=== PATIENT | male | born 2000 | race Caucasian/White ===

== ENCOUNTER 2024-07-20 10:49 | Inpatient (IN) ==
--- NOTE | 2024-07-20 11:22 | Emergency Department Note ---
Impression & Plan Elevated troponin, Adverse reaction to drug ED Provider Note CHIEF COMPLAINT: Elevated troponin, EKG changes HISTORY OF PRESENT ILLNESS: This 24-year-old male patient with significant past medical history of SGS, schizophrenia, ID, presents to the emergency department via private vehicle accompanied by parents who provide the history. The patient is on clozapine. He has weekly lab and EKG evaluations. This week, the patient's troponin test was elevated at 198 yesterday. The patient was contacted by the psychiatrist and referred to the emergency department due to this. The patient was not brought to the ED last night, but instead presented to [facility] this morning. He had repeat EKG completed which was concerning for ST elevation and patient was referred to the emergency department again for an echocardiogram. Apparently Dr. Drake from [facility] cardiology had been contacted and will help to coordinate having the echocardiogram completed. The patient has not had any chest pain. He did have 1 episode of incontinence yesterday morning which the patient's mother states is unusual for him. He has not otherwise had any pain, nausea, or vomiting. He has not had any shortness of breath or recent illness. No other associated symptoms. History provided by: Patient's mother REVIEW OF SYSTEMS: A 10 system review of systems was performed with positives and pertinent negatives listed in the history of present illness. All other systems were reviewed and are negative. ALLERGIES: NKDA PHYSICAL EXAM: VITALS: Vitals are noted on the nurse's note and reviewed by myself. GENERAL: This is a 24 year old male, in no acute distress, nondiaphoretic, well- developed well-nourished. SKIN: The skin was without rashes, erythema, edema, or bruising. There is no tenting of the skin. Capillary refill less than 2 seconds. HEAD: Normocephalic atraumatic. EYES: Conjunctivae without injection, sclerae without icterus. NECK: Supple without nuchal rigidity. No lymphadenopathy. Cervical spine is nontender. No JVD. HEART: Regular rate and rhythm without murmurs gallops or rubs. LUNGS: Clear to auscultation bilaterally without wheezes, rales or rhonchi. No retractions or accessory muscle use. ABDOMEN: Positive bowel sounds x 4. Soft, nontender, without masses or organomegaly. Larsen sign negative. No guarding or rebound tenderness. MUSCULOSKELETAL: No muscle atrophy, erythema, or edema noted. Full range of motion without joint tenderness in all extremities. No tenderness to palpation. Normal gait. Strength 5/5 throughout. NEURO: Patient was alert and oriented to person place and time. No focal neurological deficits. An order was placed for continuous director of cardiac rehabilitation. The monitor showed a normal sinus rhythm at a ventricular rate of 97 bpm, per my interpretation. EKG was reviewed by myself and found to be normal sinus rhythm with sinus arrhythmia at a rate of 95 beats per minute and per my interpretation reveals no ST elevation or depression. No T wave inversion. ST elevation on outpatient EKG completed earlier at [facility] has resolved. Imaging as interpreted by myself and the radiologist revealed no infiltrate, with radiologist interpretation as above. I agree with the radiologist's findings as based upon my independent interpretation. EMERGENCY DEPARTMENT COURSE: The patient was seen and evaluated as above. Outside medical records from [employer] were obtained with the assistance of case management. It appears that the patient recently had a dose change to per psychiatry. Because he is taking this medication with high risk of cardiomyopathy, he has CRP and troponin testing completed weekly. Patient had outpatient tests completed yesterday and troponin was found to be elevated. I evaluated the patient at the bedside. The patient's mother states that they were referred here for echocardiogram and that the teacher education instructor is aware. She states that because of his elevated troponin and abnormal EKG on outpatient testing, that the patient is to have further cardiac evaluation completed emergently. IV access was obtained, labs were drawn. Chest x-ray and EKG completed and reviewed by myself as above. Labs reviewed. Per my interpretation, mild cytosis of 11.71. No anemia or thrombocytopenia. Renal, hepatic panel and electrolytes without significant abnormality. INR 1.1. PT 11.4. Lipase 99. Troponin testing is elevated at 479. Echocardiogram was ordered and completed at the bedside. I discussed the case with Dr. Drake, [facility] teacher education instructor. He is somewhat familiar with the case, but does not normally follow with this patient. He did review the echocardiogram and notes normal EF function. EKG without ischemic changes or dysrhythmia. He states he is not generally familiar with cardiomyopathy related to Clozaril, and recommends consulting with the patient's psychiatrist who referred the patient for testing regarding next steps. Discussed the case with Dr. Lebron, pt. psychiatrist through [facility]. She notes that cardiomyopathy from Clozaril is an extremely rare complication. She would like the patient to hold the Clozaril for now and investigate for alternative causes for the myocarditis in the setting of rising troponin and normal EKG and echocardiogram. She notes that the patient's mother advised her that he has been sick with "sinus issues" and a "GI bug" over the past few weeks and believes symptoms may be associated with viral etiology. She would like for the patient to be admitted to trend troponin level until it is trending downward while completing additional evaluation for possible viral illness. I discussed these recommendations with the patient and mother at bedside. Patient's mother was agreeable with the admission. [facility] evaluate the patient for admission. Please see hospitalist dictation regarding ongoing management and final disposition for this patient. Case was discussed with the attending physician. I attest that I have personally reviewed the patient medication list. I attest that I have reviewed the patient's blood pressure and it was found to be normal GCS: 15 In the evaluation and treatment of this patient the following differential diagnoses were entertained: Cardiac ischemia, aortic dissection, pulmonary embolism, pneumothorax, pneumonia, pericarditis, myocarditis, esophageal rupture, GERD, cholecystitis, pancreatitis, musculoskeletal, as well as other pathologies. The chart was completed utilizing [employer] voice recognition software. Grammatical errors, random word insertions, pronoun errors, and incomplete sentences are an occasional consequence of this system due to software limitations, ambient noise, and hardware issues. Any formal questions or concerns about the content, text, or information contained within the body of this dictation should be directly addressed to the provider for clarification. Past Med/Surg History Problem List (Updated 07/20/24 @ 16:07 by Peyton Medina PA-C) Adverse reaction to drug (Acute) Elevated troponin (Acute) Medical History No pertinent past medical history Social History Smoking Status: Never smoker Feels Safe at Home: Yes Allergies Allergies Allergy/AdvReac Type Severity Reaction Status Date / Time amoxicillin Allergy Intermediate Rash and Unverified 07/20/24 14:05 stomach upset Home Meds Home Medications Medication Instructions Recorded Confirmed clozapine 100 mg tablet 100 mg PO DIRECTED 07/20/24 07/20/24 escitalopram oxalate 10 mg tablet 5 mg PO DAILY 07/20/24 07/20/24 (Lexapro) hydroxyzine pamoate 25 mg capsule 25 mg PO QID PRN Anxiety 07/20/24 07/20/24 loratadine 10 mg tablet 10 mg PO DAILY PRN allergies 07/20/24 07/20/24 loxapine succinate 50 mg capsule 50 mg PO DAILY 07/20/24 07/20/24 Results & Data (ED) Vital Signs Vital Signs - 24 hr 07/20/24 10:51 07/20/24 11:31 07/20/24 11:31 Temperature 36.8 C Temperature Source Oral Pulse Rate 97 H Pulse Rate [Finger] 97 H Pulse Rate from SpO2 Sensor Respiratory Rate 16 18 Respiratory Effort / Characteristics Non-Labored Spontaneous Respiratory Depth Normal Blood Pressure 125/85 Blood Pressure [Left Arm] 122/89 Blood Pressure Mean 98 Blood Pressure Mean [Left Arm] 100 Pulse Oximetry 100 99 Oxygen Delivery Method Room Air Room Air Nasal Cannula Sepsis Recent Fever Within 48 Hours No Sepsis New/Unexplained Change in Mental Status No Sepsis Action Taken by Nursing No Action Required 07/20/24 12:37 07/20/24 12:48 07/20/24 13:30 Temperature Temperature Source Pulse Rate 89 102 H Pulse Rate [Finger] 114 H Pulse Rate from SpO2 Sensor 101 H Respiratory Rate 25 H 24 Respiratory Effort / Characteristics Respiratory Depth Blood Pressure Blood Pressure [Left Arm] 130/95 Blood Pressure Mean Blood Pressure Mean [Left Arm] 106 Pulse Oximetry 98 97 Oxygen Delivery Method Room Air Room Air Sepsis Recent Fever Within 48 Hours Sepsis New/Unexplained Change in Mental Status Sepsis Action Taken by Nursing 07/20/24 15:16 07/20/24 15:19 Temperature Temperature Source Pulse Rate Pulse Rate [Finger] 116 H Pulse Rate from SpO2 Sensor Respiratory Rate 18 Respiratory Effort / Characteristics Respiratory Depth Blood Pressure Blood Pressure [Left Arm] 141/106 H Blood Pressure Mean Blood Pressure Mean [Left Arm] 117 Pulse Oximetry 97 Oxygen Delivery Method Room Air Room Air Sepsis Recent Fever Within 48 Hours Sepsis New/Unexplained Change in Mental Status Sepsis Action Taken by Nursing Laboratory Data 07/20/24 11:13 07/20/24 11:13 Lab Results 07/20/24 07/20/24 07/20/24 Range/Units 11:13 13:15 14:20 WBC 11.71 H (4.8-10.8) K/ul RBC 5.63 (4.70-6.10) M/uL Hgb 15.5 (14.0-18.0) g/dl Hct 47.1 (42.0-52.0) % MCV 83.7 (80.0-100.0) fL MCH 27.5 (25.0-34.0) pg MCHC 32.9 (32.0-36.0) g/dL RDW Std Deviation 36.7 (36.4-46.3) fL RDW Coeff of Mario 12.1 (11.5-14.5) % Plt Count 249 (130-400) K/uL MPV 9.5 (9.4-12.4) fL Immature Gran % (Auto) 0.5 % Neut % (Auto) 69.8 % Lymph % (Auto) 20.8 % [place] % (Auto) 7.1 % Eos % (Auto) 1.5 % Baso % (Auto) 0.3 % Neut # (Auto) 8.16 H (1.40-6.50) K/uL Lymph # (Auto) 2.44 (1.20-3.40) K/uL [place] # (Auto) 0.83 H (0.11-0.59) K/uL Eos # (Auto) 0.18 (0.00-0.50) K/uL Baso # (Auto) 0.04 (0.00-0.20) K/uL Immature Gran # (Auto) 0.06 (0.01-0.20) K/uL PT 11.4 (9.0-12.0) Seconds INR 1.1 (0.9-1.1) APTT 27 (21-31) Seconds PTT Ratio 1.0 Sodium 140 (136-145) mmol/L Potassium 4.1 (3.5-5.1) mmol/L Chloride 104 (98-107) mmol/L Carbon Dioxide 32 (21-32) mmol/L Anion Gap 4 (3-11) BUN 12 (6-23) mg/dl Creatinine 0.83 (0.6-1.4) mg/dl Est Cr Clr Drug Dosing 103.3 ml/min eGFR 126.91 BUN/Creatinine Ratio 14.5 (10-20) Glucose 77 (70-99(Fasting)) mg/dl Calcium 9.5 (8.6-10.3) mg/dl Total Bilirubin 0.5 (0.2-1.0) mg/dl AST 28 (13-39) U/L ALT 33 (7-52) U/L Alkaline Phosphatase 57 (34-104) U/L Troponin I High Sens 479.0 H* 438.0 H* (0-20) pg/ml Total Protein 6.6 (6.0-8.3) gm/dl Albumin 4.2 (3.4-5.0) gm/dl Globulin 2.4 L (2.5-4.0) gm/dl Albumin/Globulin Ratio 1.8 (0.9-2) Lipase 99 H (11-82) U/L Adenovirus (PCR) Not Detected (NotDetected) B. pertussis DNA (PCR) Not Detected (NotDetected) B.parapertussis DNA PCR Not Detected (NotDetected) C. pneumoniae DNA (PCR) Not Detected (NotDetected) Coronavirus OC43 (PCR) Not Detected (NotDetected) Coronavirus HKU1 (PCR) Not Detected (NotDetected) Coronavirus 229E (PCR) Not Detected (NotDetected) SARS-CoV-2 (PCR) Not Detected (NotDetected) Coronavirus NL63 (PCR) Not Detected (NotDetected) Human Metapneumovir PCR Not Detected (NotDetected) Influenza Type A (PCR) Not Detected (NotDetected) Influenza Type B (PCR) Not Detected (NotDetected) M. pneumoniae (PCR) Not Detected (NotDetected) Parainfluenza 1 (PCR) Not Detected (NotDetected) Parainfluenza 2 (PCR) Not Detected (NotDetected) Parainfluenza 3 (PCR) Not Detected (NotDetected) Parainfluenza 4 (PCR) Not Detected (NotDetected) RSV (PCR) Not Detected (NotDetected) Entero/Rhino (PCR) Not Detected (NotDetected) Imaging Data Radiologist's Impression: Chest X-Ray 07/20/24 10:56 XR chest 1V portable CLINICAL HISTORY: Chest pain, nonspecific COMPARISON STUDY: No previous studies for comparison. FINDINGS: Lung volumes are normal. Lungs are clear. There is no pneumothorax or pleural effusion. Cardiac size is normal. Mediastinal contours are normal. There is no evidence for pulmonary edema. IMPRESSION: No acute cardiopulmonary findings. ACT 112: Negative or not required by law. Electronically signed by: Tristian Zambrano M.D. 07/20/2024 11:38 AM Discharge Plan Visit Data Chief Complaint: Testing Request Stated Complaint: ECHO REQ/TESTING, DOC REF ED Provider: Héctor Watts ED Midlevel Provider: Peyton Medina Discharge Problem: Elevated troponin, Adverse reaction to drug Patient Disposition: Admitted As Inpatient Discharge Instructions Interventions: ED Discharge Assessment Last Done: 07/20/24 15:19 Forms Stand Alone Forms: [facility] [employer] Prescriptions Prescriptions: No Action clozapine 100 mg Tablet 100 mg PO DIRECTED Rx Instructions: take half pill by mouth in the morning - one & a half pill 150 mg loratadine 10 mg Tablet 10 mg PO DAILY PRN (Reason: allergies ) loxapine succinate 50 mg Capsule 50 mg PO DAILY hydroxyzine pamoate 25 mg Capsule 25 mg PO QID PRN (Reason: Anxiety) escitalopram oxalate [Lexapro] 10 mg Tablet 5 mg PO DAILY Referrals Referrals: Eb Tipton PA-C [Primary Care Provider] -
[2024-07-20 11:32] LABS: Basophils # (auto) 0.04 K/uL (0.00-0.20); Basophils % (auto) 0.3 %; Eosinophils # (auto) 0.18 K/uL (0.00-0.50); Eosinophils % (auto) 1.5 %; Hematocrit (blood only) 47.1 % (42.0-52.0); Hemoglobin 15.5 g/dl (14.0-18.0); Immature Granulocytes # (auto) 0.06 K/uL (0.01-0.20); Immature Granulocytes % (auto) 0.5 %; Lymphocytes # (auto) 2.44 K/uL (1.20-3.40); Lymphocytes % (auto) 20.8 %; Mean Corpuscular Hemoglobin 27.5 pg (25.0-34.0); Mean Corpuscular Hgb Conc 32.9 g/dL (32.0-36.0); Mean Corpuscular Volume 83.7 fL (80.0-100.0); Mean Platelet Volume 9.5 fL (9.4-12.4); Monocytes # (auto) 0.83 K/uL (0.11-0.59); Monocytes % (auto) 7.1 %; Neutrophils # (auto) 8.16 K/uL (1.40-6.50); Neutrophils % (auto) 69.8 %; Platelet Count 249 K/uL (130-400); RDW Coefficient of Variation 12.1 % (11.5-14.5); RDW Standard Deviation 36.7 fL (36.4-46.3); Red Blood Count 5.63 M/uL (4.70-6.10); White Blood Count 11.71 K/ul (4.8-10.8)
--- NOTE | 2024-07-20 11:39 | XRay Report ---
XR chest 1V portable CLINICAL HISTORY: Chest pain, nonspecific COMPARISON STUDY: No previous studies for comparison. FINDINGS: Lung volumes are normal. Lungs are clear. There is no pneumothorax or pleural effusion. Car diac size is normal. Mediastinal contours are normal. There is no evidence for pulmonary edema. IMPRESSION: No acute cardiopulmonary findings. ACT 112: Negative or not required by law. Electronically signed by: Tristian Zambrano M.D. 07/20/2024 11:38 AM
[2024-07-20 11:44] LABS: Albumin Globulin Ratio 1.8 (0.9-2); Albumin Level 4.2 gm/dl (3.4-5.0); BUN Creatinine Ratio 14.5 (10-20); Bilirubin,Total 0.5 mg/dl (0.2-1.0); Calcium 9.5 mg/dl (8.6-10.3); Creatinine Clr Calc Pharmacy 103.3 ml/min; Globulin 2.4 gm/dl (2.5-4.0); Potassium 4.1 mmol/L (3.5-5.1); Total Protein 6.6 gm/dl (6.0-8.3)
[2024-07-20 11:55] LABS: INR 1.1 (0.9-1.1); Partial Thromboplastin Time 27 Seconds (21-31); Prothrombin Time 11.4 Seconds (9.0-12.0)
--- NOTE | 2024-07-20 14:27 | History & Physical Report ---
Date of Service July 20, 2024 Assessment & Plan (1) Elevated troponin: (2) Adverse reaction to drug: Plan Assessment and plan: ST elevation Elevated troponin Suspected myocarditis which Possibly a side effect to increasing clozapine, echo unremarkable Repeat EKG unremarkable, troponin trending down, no chest pain/shortness of breath Cardiology consulted, will make n.p.o. for possible stress test Hold clozapine, clozapine level pending, repeat EKG in a.m. started Hx schizophrenia/anxiety: Continue Lexapro/hydroxyzine/loxapine A total of 60 minutes was spent on chart review/reviewing diagnostic data/facilitating plan of care/discussion with consultants Full code DVT prophylaxis: Lovenox History of Present Illness Chief Complaint: Abnormal outpatient blood work Primary Care Provider: Eb Tipton PA-C The patient is a 24-year-old male with a past medical history of schizophrenia, anxiety, ID who presents to the ED on 07/20/2024 after he was sent in by his outpatient psychiatrist for concern of elevated troponin level. Over the past month, the patient has been having hallucinations and his psychiatrist has been adjusting his medications. His clozapine has been adjusted and in turn the patient's psychiatrist was checking a CRP and troponin level because of the rare side effect of myocarditis that is associated with this medication. On 07/19/2024, the patient's troponin level was 198. The psychiatrist directed the patient to report to the ED. The patient reported to the [facility] clinic earlier this morning and had a repeat EKG done which showed ST elevation, unclear which leads and the patient was sent to the ED. On arrival to the ED, EKG showed no acute changes and was within normal limits Initial troponin 479, repeat troponin 438 Clozapine levels pending, Bio[employer] negative for respiratory illness, aside from WBC 11.7, labs fairly unremarkable Chest x-ray negative Echocardiogram unremarkable The patient will be admitted for further monitoring of elevated troponin and clozapine will be held Allergies Allergy/AdvReac Type Severity Reaction Status Date / Time amoxicillin Allergy Intermediate Rash and Unverified 07/20/24 14:05 stomach upset Home Medications Medication Instructions Recorded Confirmed Type clozapine 100 mg tablet 100 mg PO DIRECTED 07/20/24 07/20/24 History escitalopram oxalate 10 mg tablet 5 mg PO DAILY 07/20/24 07/20/24 History (Lexapro) hydroxyzine pamoate 25 mg capsule 25 mg PO QID PRN Anxiety 07/20/24 07/20/24 History loratadine 10 mg tablet 10 mg PO DAILY PRN allergies 07/20/24 07/20/24 History loxapine succinate 50 mg capsule 50 mg PO DAILY 07/20/24 07/20/24 History Past Med/Surg History Problem List (Updated 07/20/24 @ 16:07 by Peyton Medina PA-C) Adverse reaction to drug (Acute) Elevated troponin (Acute) Medical History No pertinent past medical history Social History Smoking Status: Never smoker Feels Safe at Home: Yes Review of Systems Review of Systems: All systems reviewed & are unremarkable except as noted in HPI & below Physical Exam Constitutional: WD/WN, vitals as above Eyes: PERRL, conjunctivae normal, anicteric sclerae Neck: trachea midline, no thyromegaly Respiratory: normal respiratory effort, lungs clear to auscultation Cardiovascular: RRR, no murmur, no edema Gastrointestinal (Abdomen): normal bowel sounds, soft, nontender, no hepatosplenomegaly Musculoskeletal: no cyanosis or clubbing, extremities motor strength 5/5 Skin: no rashes, warm and dry Neurologic: PERRL, EOMI, accommodation nl, no face palsy, no dysarthria (AAOx3, mentation at baseline, follows basic commands, Hx ID) Psychiatric: A+Ox3, euthymic affect Genitourinary: no testicular masses, no penis abnormality Lymphatic: no cervical or axillary lymphadenopathy Results & Data Results & Data Vital Signs (Past 12 Hours) Vital Signs Temp Pulse Pulse Resp BP BP Pulse Ox 07/20/24 13:30 114 H 24 130/95 97 07/20/24 12:48 102 H 25 H 98 07/20/24 12:37 89 07/20/24 11:31 07/20/24 11:31 97 H 18 122/89 99 07/20/24 10:51 36.8 C 97 H 16 125/85 100 O2 Del Method 07/20/24 13:30 Room Air 07/20/24 12:48 Room Air 07/20/24 12:37 07/20/24 11:31 Nasal Cannula 07/20/24 11:31 Room Air 07/20/24 10:51 Room Air Diagnostic Findings Laboratory Results WBC 11.71 K/ul (4.8-10.8) H 07/20/24 11:13 RBC 5.63 M/uL (4.70-6.10) 07/20/24 11:13 Hgb 15.5 g/dl (14.0-18.0) 07/20/24 11:13 Hct 47.1 % (42.0-52.0) 07/20/24 11:13 MCV 83.7 fL (80.0-100.0) 07/20/24 11:13 MCH 27.5 pg (25.0-34.0) 07/20/24 11:13 MCHC 32.9 g/dL (32.0-36.0) 07/20/24 11:13 RDW Std Deviation 36.7 fL (36.4-46.3) 07/20/24 11:13 RDW Coeff of Mario 12.1 % (11.5-14.5) 07/20/24 11:13 Plt Count 249 K/uL (130-400) 07/20/24 11:13 MPV 9.5 fL (9.4-12.4) 07/20/24 11:13 Immature Gran % (Auto) 0.5 % 07/20/24 11:13 Neut % (Auto) 69.8 % 07/20/24 11:13 Lymph % (Auto) 20.8 % 07/20/24 11:13 [place] % (Auto) 7.1 % 07/20/24 11:13 Eos % (Auto) 1.5 % 07/20/24 11:13 Baso % (Auto) 0.3 % 07/20/24 11:13 Neut # (Auto) 8.16 K/uL (1.40-6.50) H 07/20/24 11:13 Lymph # (Auto) 2.44 K/uL (1.20-3.40) 07/20/24 11:13 [place] # (Auto) 0.83 K/uL (0.11-0.59) H 07/20/24 11:13 Eos # (Auto) 0.18 K/uL (0.00-0.50) 07/20/24 11:13 Baso # (Auto) 0.04 K/uL (0.00-0.20) 07/20/24 11:13 Immature Gran # (Auto) 0.06 K/uL (0.01-0.20) 07/20/24 11:13 PT 11.4 Seconds (9.0-12.0) 07/20/24 11:13 INR 1.1 (0.9-1.1) 07/20/24 11:13 APTT 27 Seconds (21-31) 07/20/24 11:13 PTT Ratio 1.0 07/20/24 11:13 Sodium 140 mmol/L (136-145) 07/20/24 11:13 Potassium 4.1 mmol/L (3.5-5.1) 07/20/24 11:13 Chloride 104 mmol/L (98-107) 07/20/24 11:13 Carbon Dioxide 32 mmol/L (21-32) 07/20/24 11:13 Anion Gap 4 (3-11) 07/20/24 11:13 BUN 12 mg/dl (6-23) 07/20/24 11:13 Creatinine 0.83 mg/dl (0.6-1.4) 07/20/24 11:13 Est Cr Clr Drug Dosing 103.3 ml/min 07/20/24 11:13 eGFR 126.91 07/20/24 11:13 BUN/Creatinine Ratio 14.5 (10-20) 07/20/24 11:13 Glucose 77 mg/dl (70-99(Fasting)) 07/20/24 11:13 Calcium 9.5 mg/dl (8.6-10.3) 07/20/24 11:13 Total Bilirubin 0.5 mg/dl (0.2-1.0) 07/20/24 11:13 AST 28 U/L (13-39) 07/20/24 11:13 ALT 33 U/L (7-52) 07/20/24 11:13 Alkaline Phosphatase 57 U/L (34-104) 07/20/24 11:13 Troponin I High Sens 438.0 pg/ml (0-20) H* 07/20/24 13:15 Total Protein 6.6 gm/dl (6.0-8.3) 07/20/24 11:13 Albumin 4.2 gm/dl (3.4-5.0) 07/20/24 11:13 Globulin 2.4 gm/dl (2.5-4.0) L 07/20/24 11:13 Albumin/Globulin Ratio 1.8 (0.9-2) 07/20/24 11:13 Lipase 99 U/L (11-82) H 07/20/24 11:13 Adenovirus (PCR) Not Detected (NotDetected) 07/20/24 14:20 B. pertussis DNA (PCR) Not Detected (NotDetected) 07/20/24 14:20 B.parapertussis DNA PCR Not Detected (NotDetected) 07/20/24 14:20 C. pneumoniae DNA (PCR) Not Detected (NotDetected) 07/20/24 14:20 Coronavirus OC43 (PCR) Not Detected (NotDetected) 07/20/24 14:20 Coronavirus HKU1 (PCR) Not Detected (NotDetected) 07/20/24 14:20 Coronavirus 229E (PCR) Not Detected (NotDetected) 07/20/24 14:20 SARS-CoV-2 (PCR) Not Detected (NotDetected) 07/20/24 14:20 Coronavirus NL63 (PCR) Not Detected (NotDetected) 07/20/24 14:20 Human Metapneumovir PCR Not Detected (NotDetected) 07/20/24 14:20 Influenza Type A (PCR) Not Detected (NotDetected) 07/20/24 14:20 Influenza Type B (PCR) Not Detected (NotDetected) 07/20/24 14:20 M. pneumoniae (PCR) Not Detected (NotDetected) 07/20/24 14:20 Parainfluenza 1 (PCR) Not Detected (NotDetected) 07/20/24 14:20 Parainfluenza 2 (PCR) Not Detected (NotDetected) 07/20/24 14:20 Parainfluenza 3 (PCR) Not Detected (NotDetected) 07/20/24 14:20 Parainfluenza 4 (PCR) Not Detected (NotDetected) 07/20/24 14:20 RSV (PCR) Not Detected (NotDetected) 07/20/24 14:20 Entero/Rhino (PCR) Not Detected (NotDetected) 07/20/24 14:20 Impressions Chest X-Ray 07/20/24 10:56 XR chest 1V portable CLINICAL HISTORY: Chest pain, nonspecific COMPARISON STUDY: No previous studies for comparison. FINDINGS: Lung volumes are normal. Lungs are clear. There is no pneumothorax or pleural effusion. Cardiac size is normal. Mediastinal contours are normal. There is no evidence for pulmonary edema. IMPRESSION: No acute cardiopulmonary findings. ACT 112: Negative or not required by law. Electronically signed by: Tristian Zambrano M.D. 07/20/2024 11:38 AM Code Status & VTE Plan VTE Prophylaxis Plan VTE Prophylaxis will be ordered: No Supervising Physician Co-Signing Physician Notes 24-year-old male with PMH of treatment resistant schizophrenia, global developmental delay, ADHD predominantly inattentive type, borderline intellectual functioning, chromosomal abnormality presented to the ED at referral from outpatient providers office due to elevated troponin noted in this weekly lab and EKG evaluation. Troponin was elevated at 198 yesterday. Patient was requested by psychiatrist to go to the emergency department due to this. They presented to the [facility] in the morning where EKG was rep eated and was concerning for ST elevation and patient was sent to the ED for echocardiogram. At bedside, patient does not appear to be in distress, denies pain, ROS not able in detail due to cognition status. Patient's parents were present at bedside, medications reviewed with them. Per patient's mom, Clozapine has been stopped by psychiatrist until reevaluated by psychiatry as an outpatient, plan to continue with other psychiatric medication, does not take loratadine currently. But patient's mom stopped all her his psychiatric medications yesterday but would like other medications be resumed today except clozapine. Labs and imagings reviewed: WBC elevated at 11.7 1K, get procalcitonin, renal function/liver function WNL, troponin elevated at 479/down trended to 438, lipase minimally elevated in the setting of no abdominal pain on exam. Respiratory pathogen panel negative. CXR with no acute finding. EKG without ischemic changes. Echo with EF of 55 to 60%, no wall motion abnormality. Elevated trop: Rule out ACS, trend troponin. Cardiology consult. Continue telemetry monitoring. On exam: GENERAL: Alert and awake. NAD, on RA. HEENT: No pallor, no icterus. Pupils equal, round and reactive to light. NECK: No JVD, no neck masses. HEART: S1 and S2 heard. Regular rate and rhythm. HR in 120s. No murmur, no gallop. RESPIRATORY SYSTEM: Normal AP diameter. No accessory muscle use. No wheezing, no crackles. ABDOMEN: Soft, bowel sounds present, nontender, no distention. CENTRAL NERVOUS SYSTEM: No facial droop. Speech is clear. Obeys simple commands. Moves extremities. EXTREMITIES: No edema, no erythema seen. I have seen and examined the patient and have discussed the case with the provider above. I agree with the assessment and plan as stated. Time spent: 30 min.
[2024-07-20 15:37] LABS: Adenovirus PCR Not Detected (NotDetected); Bordetella parapertussis PCR Not Detected (NotDetected); Bordetella pertussis PCR Not Detected (NotDetected); Chlamydia pneumoniae PCR Not Detected (NotDetected); Coronavirus 229E PCR Not Detected (NotDetected); Coronavirus CoV-2 (COVID19)PCR Not Detected (NotDetected); Coronavirus HKU1 PCR Not Detected (NotDetected); Coronavirus NL63 PCR Not Detected (NotDetected); Coronavirus OC43PCR Not Detected (NotDetected); Human Metapneumovirus PCR Not Detected (NotDetected); Influenza A PCR Not Detected (NotDetected); Influenza B PCR Not Detected (NotDetected); Mycoplasma pneumoniae PCR Not Detected (NotDetected); Parainfluenza Virus 1 PCR Not Detected (NotDetected); Parainfluenza Virus 2 PCR Not Detected (NotDetected); Parainfluenza Virus 3 PCR Not Detected (NotDetected); Parainfluenza Virus 4 PCR Not Detected (NotDetected); Respiratory Syncytial VirusPCR Not Detected (NotDetected); Rhinovirus/Enterovirus PCR Not Detected (NotDetected)
--- NOTE | 2024-07-20 17:22 | Cardiology Progress Note ---
Date of Service July 20, 2024 Assessment & Plan (1) Elevated troponin: (2) Adverse reaction to drug: Plan 24-year-old male on clozapine for treatment resistant schizophrenia. Being followed serially with echo EKG and troponins. Recent symptoms of upper respiratory infection possible viral syndrome with most recent laboratory testing demonstrating elevated troponin. EKG with repolarization changes more pronounced in lateral leads on EKG as an outpatient baseline repolarization changes on ER presentation troponins elevated but trending downward. Differential diagnosis includes reaction to clozapine, viral induced pericarditis Acute coronary syndrome unlikely Patient currently without complaint Plan observe on telemetry repeat EKG in a.m. trend troponin Consider adding low-dose beta-lexy but review of prior EKGs demonstrates past bradycardia arrhythmias Will follow Admission and Anticipated Discharge Date Admission Date: July 20, 2024 Subjective Patient has 24-year-old male with history as reported treatment resistant schizophrenia, global developmental delay, ADHD predominantly inattentive type, borderline intellectual functioning, chromosomal abnormality presented to the ED at referral from outpatient providers office due to elevated troponin noted in this weekly lab and EKG evaluation. Troponin was elevated at 198 yesterday. Patient was requested by psychiatrist to go to the emergency department due to this. They presented to the [facility] in the morning where EKG was repeated and was concerning for ST elevation and patient was sent to the ED for echocardiogram. Clinical history notable for treatment with clozapine with recent upward titration of dose. Has been followed serially with troponin. Recent history of probable viral syndrome with nausea and upper respiratory complaints. Troponin done and routine evaluation elevated yesterday. Referred to the ER after EKG with ST elevation/repolarization as outpatient. Troponins on presentation elevated but now trending downward. Echocardiogram done in evaluation demonstrated preserved wall motion and LV function. No signs of myocardial injury or wall motion abnormality. Current exam in hospital room without complaint though patient limited historian minimally verbal. Does follow simple commands. No chest pain or shortness of breath per report Review of Systems Review of Systems: All systems reviewed & are unremarkable except as noted in HPI & below Physical Exam Constitutional: no acute distress Neck: trachea midline, no thyromegaly Respiratory: normal respiratory effort, lungs clear to auscultation Cardiovascular: RRR, no murmur, no edema Gastrointestinal (Abdomen): normal bowel sounds, soft, nontender, no hepatosplenomegaly Musculoskeletal: no cyanosis or clubbing, extremities motor strength 5/5 Results & Data Vital Signs (Past 12 Hours) Vital Signs Temp Pulse Pulse Resp BP BP Pulse Ox 07/20/24 16:13 110 H 18 131/91 97 07/20/24 15:19 07/20/24 15:16 116 H 18 141/106 H 97 07/20/24 13:30 114 H 24 130/95 97 07/20/24 12:48 102 H 25 H 98 07/20/24 12:37 89 07/20/24 11:31 07/20/24 11:31 97 H 18 122/89 99 07/20/24 10:51 36.8 C 97 H 16 125/85 100 O2 Del Method 07/20/24 16:13 Room Air 07/20/24 15:19 Room Air 07/20/24 15:16 Room Air 07/20/24 13:30 Room Air 07/20/24 12:48 Room Air 07/20/24 12:37 07/20/24 11:31 Nasal Cannula 07/20/24 11:31 Room Air 07/20/24 10:51 Room Air Laboratory Results Laboratory Results - last 24 hr 07/20/24 07/20/24 07/20/24 11:13 13:15 14:20 WBC 11.71 H RBC 5.63 Hgb 15.5 Hct 47.1 MCV 83.7 MCH 27.5 MCHC 32.9 RDW Std Deviation 36.7 RDW Coeff of Mario 12.1 Plt Count 249 MPV 9.5 Immature Gran % (Auto) 0.5 Neut % (Auto) 69.8 Lymph % (Auto) 20.8 [place] % (Auto) 7.1 Eos % (Auto) 1.5 Baso % (Auto) 0.3 Neut # (Auto) 8.16 H Lymph # (Auto) 2.44 [place] # (Auto) 0.83 H Eos # (Auto) 0.18 Baso # (Auto) 0.04 Immature Gran # (Auto) 0.06 PT 11.4 INR 1.1 APTT 27 PTT Ratio 1.0 Sodium 140 Potassium 4.1 Chloride 104 Carbon Dioxide 32 Anion Gap 4 BUN 12 Creatinine 0.83 Est Cr Clr Drug Dosing 103.3 eGFR 126.91 BUN/Creatinine Ratio 14.5 Glucose 77 Calcium 9.5 Total Bilirubin 0.5 AST 28 ALT 33 Alkaline Phosphatase 57 Troponin I High Sens 479.0 H* 438.0 H* Total Protein 6.6 Albumin 4.2 Globulin 2.4 L Albumin/Globulin Ratio 1.8 Lipase 99 H Procalcitonin Clozapine Norclozapine Adenovirus (PCR) Not Detected B. pertussis DNA (PCR) Not Detected B.parapertussis DNA PCR Not Detected C. pneumoniae DNA (PCR) Not Detected Coronavirus OC43 (PCR) Not Detected Coronavirus HKU1 (PCR) Not Detected Coronavirus 229E (PCR) Not Detected SARS-CoV-2 (PCR) Not Detected Coronavirus NL63 (PCR) Not Detected Human Metapneumovir PCR Not Detected Influenza Type A (PCR) Not Detected Influenza Type B (PCR) Not Detected M. pneumoniae (PCR) Not Detected Parainfluenza 1 (PCR) Not Detected Parainfluenza 2 (PCR) Not Detected Parainfluenza 3 (PCR) Not Detected Parainfluenza 4 (PCR) Not Detected RSV (PCR) Not Detected Entero/Rhino (PCR) Not Detected 07/20/24 07/20/24 15:04 17:04 WBC RBC Hgb Hct MCV MCH MCHC RDW Std Deviation RDW Coeff of Mario Plt Count MPV Immature Gran % (Auto) Neut % (Auto) Lymph % (Auto) [place] % (Auto) Eos % (Auto) Baso % (Auto) Neut # (Auto) Lymph # (Auto) [place] # (Auto) Eos # (Auto) Baso # (Auto) Immature Gran # (Auto) PT INR APTT PTT Ratio Sodium Potassium Chloride Carbon Dioxide Anion Gap BUN Creatinine Est Cr Clr Drug Dosing eGFR BUN/Creatinine Ratio Glucose Calcium Total Bilirubin AST ALT Alkaline Phosphatase Troponin I High Sens Pending Total Protein Albumin Globulin Albumin/Globulin Ratio Lipase Procalcitonin Pending Clozapine Pending Norclozapine Pending Adenovirus (PCR) B. pertussis DNA (PCR) B.parapertussis DNA PCR C. pneumoniae DNA (PCR) Coronavirus OC43 (PCR) Coronavirus HKU1 (PCR) Coronavirus 229E (PCR) SARS-CoV-2 (PCR) Coronavirus NL63 (PCR) Human Metapneumovir PCR Influenza Type A (PCR) Influenza Type B (PCR) M. pneumoniae (PCR) Parainfluenza 1 (PCR) Parainfluenza 2 (PCR) Parainfluenza 3 (PCR) Parainfluenza 4 (PCR) RSV (PCR) Entero/Rhino (PCR)
[2024-07-20] MEDS: ESCITALOPRAM OXALATE 10 MG TAB PO SCH (17:30)
[2024-07-20] MEDS: hydrOXYzine HCl 25 MG TAB PO SCH (21:49)
[2024-07-20 23:02] LABS: Troponin I High Sensitivity 458.7 pg/ml (0-20)
[2024-07-20 23:31] LABS: Magnesium 1.8 mg/dl (1.7-2.4)
[2024-07-21] MEDS ORDERED: ACETAMINOPHEN 325 MG TAB PO PRN (02:28)
[2024-07-21] MEDS: KETOROLAC TROMETHAMINE 15 MG/ML VIAL IV ONE (02:32)
[2024-07-21] MEDS: KETOROLAC TROMETHAMINE 15 MG/ML VIAL ONE (02:34)
[2024-07-21 06:46] LABS: Hematocrit (blood only) 48.5 % (42.0-52.0); Hemoglobin 16.4 g/dl (14.0-18.0); Mean Corpuscular Hemoglobin 28.3 pg (25.0-34.0); Mean Corpuscular Hgb Conc 33.8 g/dL (32.0-36.0); Mean Corpuscular Volume 83.6 fL (80.0-100.0); Mean Platelet Volume 9.5 fL (9.4-12.4); Platelet Count 295 K/uL (130-400); RDW Coefficient of Variation 12.2 % (11.5-14.5); RDW Standard Deviation 36.9 fL (36.4-46.3); White Blood Count 13.38 K/ul (4.8-10.8)
[2024-07-21 07:08] LABS: Albumin Globulin Ratio 1.7 (0.9-2); Albumin Level 4.5 gm/dl (3.4-5.0); BUN Creatinine Ratio 19.3 (10-20); Bilirubin,Total 0.6 mg/dl (0.2-1.0); Calcium 9.7 mg/dl (8.6-10.3); Creatinine Clr Calc Pharmacy 97.4 ml/min; Globulin 2.6 gm/dl (2.5-4.0); Potassium 4.3 mmol/L (3.5-5.1); Total Protein 7.1 gm/dl (6.0-8.3)
[2024-07-21 07:52] VITALS: RESP 18
[2024-07-21] MEDS: LOXAPINE SUCCINATE PO SCH (08:13)
[2024-07-21] MEDS: hydrOXYzine HCl 25 MG TAB PO SCH (08:13)
--- NOTE | 2024-07-21 10:13 | Electrocardiogram Report ---
Test Reason : Blood Pressure : */* mmHG Vent. Rate : 100 BPM Atrial Rate : 100 BPM P-R Int : 110 ms QRS Dur : 58 ms QT Int : 328 ms P-R-T Axes : 72 50 25 degrees QTcB Int : 423 ms Poor data quality, interpretation may be adversely affected Sinus rhythm Normal ECG When compared with ECG of 20-Jul-2024 11:03, No significant change was found Confirmed by Aleksandr Salguero ([id number]) on 07/21/2024 10:13:14 AM Referred By: REFERRED SELF Confirmed By: Aleksandr Salguero
--- NOTE | 2024-07-21 10:15 | Electrocardiogram Report ---
Test Reason : Blood Pressure : */* mmHG Vent. Rate : 106 BPM Atrial Rate : 106 BPM P-R Int : 112 ms QRS Dur : 68 ms QT Int : 330 ms P-R-T Axes : 52 46 19 degrees QTcB Int : 438 ms Poor data quality, interpretation may be adversely affected Sinus tachycardia Otherwise normal ECG When compared with ECG of 21-Jul-2024 02:10, No significant change was found Confirmed by Aleksandr Salguero ([id number]) on 07/21/2024 10:15:19 AM Referred By: REFERRED SELF Confirmed By: Aleksandr Salguero
[2024-07-21 11:19] VITALS: BP 106/74; PULSE 94; TEMP 98.1; O2SAT 95
--- NOTE | 2024-07-21 11:37 | Cardiology Progress Note ---
Date of Service July 21, 2024 Assessment & Plan (1) Elevated troponin: (2) Adverse reaction to drug: Plan 24-year-old male on clozapine for treatment resistant schizophrenia. Being followed serially with echo EKG and troponins. Recent symptoms of upper respiratory infection possible viral syndrome with most recent laboratory testing demonstrating elevated troponin. EKG with repolarization changes more pronounced in lateral leads on EKG as an outpatient baseline repolarization changes on ER presentation troponins elevated but trending downward. Differential diagnosis includes reaction to clozapine, viral induced pericarditis Acute coronary syndrome unlikely Patient currently without complaint Plan observe on telemetry repeat EKG in a.m. trend troponin Consider adding low-dose beta-lexy but review of prior EKGs demonstrates past bradycardia arrhythmias Will follow 07/21/2024 24-year-old male admitted with abnormal laboratory testing with elevated troponin in the setting of Clozaril treatment for longstanding treatment resistant schizophrenia. Troponins trending downward. No signs of LV dysfunction on echocardiogram EKG stable. No signs of congestive heart failure or cardiac decompensation on exam Recommendations: Given mildly elevated heart rate will begin metoprolol succinate 12.5 mg once per day for additional cardiac protection Continue serial troponins as outpatient planned upcoming retest on Wednesday Repeat echocardiogram 10 to 14 days as an outpatient. Will arrange Family instructed to follow heart rates at home Admission and Anticipated Discharge Date Admission Date: July 20, 2024 Subjective Patient seen and examined, chart, medications, telemetry reviewed Patient appears brighter today answering questions. No acute complaints No arrhythmias on telemetry No chest pain or shortness of breath Review of Systems Review of Systems: Unobtainable due to mental health condition Physical Exam Constitutional: no acute distress Eyes: PERRL, conjunctivae normal, anicteric sclerae Neck: trachea midline, no thyromegaly Respiratory: normal respiratory effort, lungs clear to auscultation Cardiovascular: RRR, no murmur, no edema Gastrointestinal (Abdomen): normal bowel sounds, soft, nontender, no hepatosplenomegaly Musculoskeletal: no cyanosis or clubbing, extremities motor strength 5/5 Results & Data Vital Signs (Past 12 Hours) Vital Signs Temp Pulse Pulse Resp BP Pulse Ox O2 Del Method 07/21/24 11:18 36.7 C 94 H 18 106/74 95 Room Air 07/21/24 09:05 120 H 07/21/24 07:51 36.4 C L 88 18 111/77 97 Room Air 07/21/24 02:07 36.6 C 98 H 20 127/86 Room Air ECG Additional Comments: EKG sinus tachycardia with mild repolarization changes, rate 106 bpm not significantly changed from prior studies
[2024-07-21] MEDS: METOPROLOL SUCC 25MG EXT REL TAB PO SCH (11:52)
--- NOTE | 2024-07-21 12:03 | Discharge Summary ---
Discharge Summary Date of Service July 21, 2024 Principal Dx & Hospital Course #1 = Principal Diagnosis (1) Elevated troponin: (2) Adverse reaction to drug: (3) Schizophrenia: Plan This is a 24-year-old male with PMH of treatment resistant schizophrenia, global developmental delay, ADHD predominantly inattentive type, borderline intellectual functioning, chromosomal abnormality presented who was admitted for elevated troponin. Also had EKG concerned for ST elevation in the clinic setting. Throughout admission patient has remained comfortable, does not appear to be in distress. Differential for elevated troponin includes reaction to clozapine vs viral induced pericarditis. Cardiology felt acute coronary syndrome unlikely. Per cardiology, EKG with repolarization changes more pronounced in lateral leads on EKG as an outpatient baseline repolarization changes on ER presentation troponins elevated but trending downward. Echocardiogram reassuring with preserved EF, no wall motion abnormality or valvular disease. Metoprolol succinate added at a low dose for additional cardiac protection given mildly elevated heart rate during admission. Plan for repeat troponin as an outpatient this coming Wednesday as well as repeat echocardiogram in 10-14 days as an outpatient, cardiology to arrange. Follow-up PCP and psychiatry appointment this coming Wednesday. Clozapine discontinued. Family instructed to monitor heart rates at home. Patient hemodynamically stable at time of discharge home. Family instructed to follow heart rates at home Notes For Next Care Provider elevated trop 2/2 Medication Changes From Visit Discontinued Clozapine, started on metoprolol succinate 12.5mg daily Admission HPI Per Admitting Provider The patient is a 24-year-old male with a past medical history of schizophrenia, anxiety, ID who presents to the ED on 07/20/2024 after he was sent in by his outpatient psychiatrist for concern of elevated troponin level. Over the past month, the patient has been having hallucinations and his psychiatrist has been adjusting his medications. His clozapine has been adjusted and in turn the patient's psychiatrist was checking a CRP and troponin level because of the rare side effect of myocarditis that is associated with this medication. On 07/19/2024, the patient's troponin level was 198. The psychiatrist directed the patient to report to the ED. The patient reported to the [facility] clinic earlier this morning and had a repeat EKG done which showed ST elevation, unclear which leads and the patient was sent to the ED. On arrival to the ED, EKG showed no acute changes and was within normal limits Initial troponin 479, repeat troponin 438 Clozapine levels pending, [employer] negative for respiratory illness, aside from WBC 11.7, labs fairly unremarkable Chest x-ray negative Echocardiogram unremarkable The patient will be admitted for further monitoring of elevated troponin and clozapine will be held Admission Exam Per Admitting Provider WD/WN, vitals as above Eyes: PERRL, conjunctivae normal, anicteric sclerae Neck: trachea midline, no thyromegaly Respiratory: normal respiratory effort, lungs clear to auscultation Cardiovascular: RRR, no murmur, no edema Gastrointestinal (Abdomen): normal bowel sounds, soft, nontender, no hepatosplenomegaly Musculoskeletal: no cyanosis or clubbing, extremities motor strength 5/5 Skin: no rashes, warm and dry Neurologic: PERRL, EOMI, accommodation nl, no face palsy, no dysarthria (AAOx3, mentation at baseline, follows basic commands, Hx ID) Psychiatric: A+Ox3, euthymic affect Genitourinary: no testicular masses, no penis abnormality Lymphatic: no cervical or axillary lymphadenopathy Discharge Exam Gen: WD/WN, NAD, walking in room, alert, poor insight HEENT: Normocephalic, atraumatic, conjunctivae moist, sclerae anicteric, mucous membranes moist Lung: Clear to Auscultation bilaterally, no wheezes/rales/rhonchi Heart: tachycardic rate, regular rhythm, no murmurs, rubs, or gallops Abdomen: Soft, NT, ND +BS x 4 Extremities: no edema Skin: Warm, no rash Updated Medication List Medication Instructions Recorded Confirmed Type escitalopram oxalate 10 mg tablet 5 mg PO DAILY 07/20/24 07/20/24 History (Lexapro) hydroxyzine pamoate 25 mg capsule 25 mg PO QID PRN Anxiety 07/20/24 07/20/24 History loratadine 10 mg tablet 10 mg PO DAILY PRN allergies 07/20/24 07/20/24 History loxapine succinate 50 mg capsule 50 mg PO DAILY 07/20/24 07/20/24 History metoprolol succinate 25 mg 12.5 mg (1/2 x 25 mg) PO QAM #30 07/21/24 Rx tablet,extended release 24 hr tabs Hospital Stay Data Consultations 07/20/24 14:27 ED Decision to Admit Stat 07/20/24 16:25 Consult Cardiology Routine Pending Results Patient Have Any Pending Studies at Discharge: No Discharge Instructions Given to Patient (Per Discharging Provider) MEDICATION CHANGES: Discontinue Clozapine- follow up with psychiatry on Wednesday as scheduled on 07/26/24. Started on metoprolol succinate 12.5mg daily SUMMARY OF TEST RESULTS: 2D echo from 07/30 with normal wall motion, EF: 55-60%, no valvular disease or pericardial effusion RECOMMENDATIONS FOR FOLLOW-UP: Repeat troponin lap as outpatient planning on Wednesday07/25/24. Follow up with PCP and psychiatry as scheduled on Wednesday07/26/24. Cardiology to rearrange repeat echocardiogram in 10-14 days as an outpatient. Continue medication regimen as scheduled aside from changes noted above. Family instructed to follow heart rates at home. OTHER INSTRUCTIONS: Seek medical attention if you have: * temperature above 101 * chest pain or trouble breathing * abdominal pain, nausea, vomiting * diarrhea, dark stools or bloody stools * any unanswered questions or concerns Call 911 if symptoms are severe. Please take good care of yourself. Call if you have any questions or problems. You can reach a [facility] hospitalist on duty at [facility] 24 hours a day by calling [phone]. Total Time Total Time Spent Total Time Spent (In Minutes): 40 Supervising Physician Co-Signing Physician Notes Patient is seen and examined on day of discharge. Patient offers no complaints during my encounter. Discussed with patient's family at bedside. Also discussed with cardiology today. Troponin elevation likely secondary to clozapine adverse reaction. Advised to discontinue the medication and follow-up with his psychiatrist as outpatient. Also started on metoprolol succinate 12.5 mg daily as recommended by cardiology. Cannot rule out viral pericarditis at this time. Patient will require repeat echo as outpatient for further evalua tion. Advised to follow-up with cardiology on discharge along with PCP and psychiatrist. On exam patient is moderately built and nourished, no apparent distress, normocephalic atraumatic, EOMI, normal breath sounds, S1-S2, no murmur, no pedal edema, abdomen soft, nontender, normal bowel sounds, alert, awake, grossly no focal deficits I personally interviewed and examined at bedside. Patient's care is coordinated with India Gonzalez PA-C. I have reviewed the advanced practitioner's documentation, and I agree with plan of care. Please refer to the documentation above for details of patient's presentation and for discussion of other issues. I spent a total [id number] coordinating, documenting, and providing care for this patient excluding time spent in the performance of separately billed services.
[2024-07-21 14:22] LABS: Adenovirus F 40/41 PCR Not Detected (NotDetected); Astrovirus PCR Not Detected (NotDetected); Campylobacter PCR Not Detected (NotDetected); Cryptosporidium PCR Not Detected (NotDetected); Cyclospora cayetanensis PCR Not Detected (NotDetected); Entamoeba histolytica PCR Not Detected (NotDetected); Enteroaggregative E.coli(EAEC) Not Detected (NotDetected); Enteropathogenic E.coli (EPEC) Not Detected (NotDetected); Giardia lamblia PCR Not Detected (NotDetected); Plesiomonas shigelloides PCR Not Detected (NotDetected); Rotavirus A PCR Not Detected (NotDetected); Salmonella PCR Not Detected (NotDetected); Sapovirus PCR Not Detected (NotDetected); Shiga-like Toxin E.coli (STEC) Not Detected (NotDetected); Shigella/Enteroinvasive E.coli Not Detected (NotDetected); Vibrio cholerae PCR Not Detected (NotDetected); Vibrio species PCR Not Detected (NotDetected); Yersinia enterocolitica PCR Not Detected (NotDetected)
[2024-07-21 14:49] LABS: Enterotoxigenic E.coli (ETEC) DETECTED (NotDetected); Norovirus GI/GII PCR DETECTED (NotDetected)
--- NOTE | 2024-07-21 16:26 | Electrocardiogram Report ---
Test Reason : Blood Pressure : */* mmHG Vent. Rate : 95 BPM Atrial Rate : 95 BPM P-R Int : 118 ms QRS Dur : 72 ms QT Int : 336 ms P-R-T Axes : 53 47 18 degrees QTcB Int : 422 ms Normal sinus rhythm with sinus arrhythmia Normal ECG No previous ECGs available Confirmed by Aleksandr Salguero ([id number]) on 07/21/2024 4:26:22 PM Referred By: REFERRED SELF Confirmed By: Aleksandr Salguero
== END 2024-07-21 13:40 | disposition home or self-care (01) | DRG 316 ==
LOC: ED 10:49 → SUATTDRO 14:25 → 2S 14:25
DX: Z79.899 Other long term (current) drug therapy; R79.89 Other specified abnormal findings of blood chemistry; T42.4X5A Adverse effect of benzodiazepines, initial encounter; Z88.0 Allergy status to penicillin; Z11.52 Encounter for screening for COVID-19; F20.9 Schizophrenia, unspecified; F90.9 Attention-deficit hyperactivity disorder, unspecified type; F41.9 Anxiety disorder, unspecified; I51.4 Myocarditis, unspecified